=== PATIENT | female | born 1975 | race Caucasian/White ===

== ENCOUNTER 2023-04-12 11:15 | Emergency (ER) | payer OTHER, MEDICAID ==
[~2023-04-12] VITALS: Ht 157.4 cm; Wt 77.1 kg
[~2023-04-12 11:15] MED LIST: ATARAX,VISTARIL50 MG PO; ATIVAN1 MG PO; CLONAZEPAM0.5 M1 PO; CLONAZEPAM0.5 MG PO; KLONOPIN1 M1 PO; LAMICTAL25 MG PO; LATU120T PO; LATU80TA PO; MIRTAZAPINE15 M1 PO; MIRTAZAPINE15 MG PO; PROPRANOLOL HCL10 MG PO; RISPERDAL CONST25 MG IM; RISPERIDONE3 M1 PO; TOBRADEX 0.1%-2.5 ML OPH; TOBRADEX 0.3-0.15 ML OPH; TRAZODONE100 MG PO; TRAZODONE50 MG PO; VISTARIL PO; VITAMIN B121000 MC1 PO; VITAMIN D50000 I3 PO; VITAMIN D50000 IU PO; ZOLOFT50 MG PO; ZYPREXA10 MG PO; ZYPREXA20 M1 PO
[2023-04-12 11:20] VITALS: BP 117/63
[2023-04-12 11:51] LABS: BASO % 0.1 % (0.0-1.0); EOS # 0.2 10*3/uL (0.0-0.4); EOS % 2.2 % (1.0-4.0); HEMATOCRIT 45.6 % (37.0-47.0); LYMPH # 2.7 10*3/uL (1.3-4.4); LYMPH % 28.4 % (27.0-41.0); MEAN CELL VOLUME 90.5 fl (81.0-99.0); MEAN CORPUSCULAR HGB 31.2 pg (27.0-31.0); MEAN CORPUSCULAR HGB CONC 34.4 g/dl (33.0-37.0); MEAN PLATELET VOLUME 11.7 fl (9.6-12.3); MONO # 0.3 10*3/uL (0.1-1.0); MONO % 2.9 % (3.0-9.0); NEUT # 6.2 10*3/uL (2.3-7.9); NEUT % 66.2 % (47.0-73.0); PLATELET COUNT AUTOMATED 227 10*3/uL (130-400); RED BLOOD COUNT 5.04 10*6/uL (4.10-5.10); RED CELL DISTRI WIDTH 13.8 % (0-14.5); WHITE BLOOD COUNT 9.4 10*3/uL (4.8-10.8)
[2023-04-12] MEDS ORDERED: SERTRALINE HYD100 MG PO (11:57)
[2023-04-12] MEDS ORDERED: ABILIFY MAINTE400 MG IM (11:57)
[2023-04-12 12:03] LABS: ACT PARTIAL THROMBO TIME 28.4 SECONDS (20.0-32.1)
[2023-04-12 12:15] LABS: ALKALINE PHOSPHATASE 96 U/L (46-116); BUN < 5 mg/dl (9-23); CHLORIDE 101 mmol/L (98-107); LIPASE 34 U/L (12-53); POTASSIUM 3.4 mmol/L (3.4-5.1); SGPT/ALT 30 U/L (10-49); TOTAL PROTEIN 7.5 gm/dL (6.0-8.0)
[2023-04-12 12:16] LABS: BETA-HCG, QUANT < 3.0 mIU/mL (3-10)
[2023-04-12 12:52] LABS: BILIRUBIN Negative (Negative); BLOOD Negative (Negative); CLARITY Clear (Clear); COLOR Yellow (Yellow); GLUCOSE Negative (Negative); KETONE Negative (Negative); LEUKO ESTERASE Negative (Negative); NITRITE Negative (Negative); SPECIFIC GRAVITY <= 1.005 (1.001-1.030); UROBILINOGEN 0.2 E.U./dl (0.0-1.0)
[2023-04-12 13:03] LABS: BACTERIA 1+; EPITHELIAL CELLS 21-30
[2023-04-12] MEDS ORDERED: PREDNISONE50 MG PO (14:08)
[2023-04-12] MEDS ORDERED: CYCLOBENZAPRINE10 MG PO (14:08)
== END 2023-04-12 14:34 | disposition home or self-care (01) ==
LOC: ED 11:15
PROVIDERS: Emergency Medicine
DX: R10.30 Lower abdominal pain, unspecified (principal); R10.84 Generalized abdominal pain; J20.9 Acute bronchitis, unspecified; F32.A Depression, unspecified; F41.9 Anxiety disorder, unspecified; Z88.1 Allergy status to other antibiotic agents

== ENCOUNTER 2023-08-01 13:52 | Emergency (ER) | payer OTHER, MEDICAID ==
[~2023-08-01] VITALS: Ht 160 cm; Wt 72.6 kg
[~2023-08-01 13:52] MED LIST changes: +ABILIFY MAINTE400 MG IM; +CYCLOBENZAPRINE10 MG PO; +PREDNISONE50 MG PO; +SERTRALINE HYD100 MG PO
[2023-08-01 13:59] VITALS: BP 112/69
[2023-08-01 14:54] LABS: BASO % 0.3 % (0.0-1.0); EOS # 0.2 10*3/uL (0.0-0.4); EOS % 2.9 % (1.0-4.0); HEMATOCRIT 43.7 % (37.0-47.0); LYMPH # 2.8 10*3/uL (1.3-4.4); LYMPH % 39.1 % (27.0-41.0); MEAN CELL VOLUME 88.6 fl (81.0-99.0); MEAN CORPUSCULAR HGB 31.8 pg (27.0-31.0); MEAN CORPUSCULAR HGB CONC 35.9 g/dl (33.0-37.0); MEAN PLATELET VOLUME 12.2 fl (9.6-12.3); MONO # 0.3 10*3/uL (0.1-1.0); MONO % 4.3 % (3.0-9.0); NEUT # 3.9 10*3/uL (2.3-7.9); NEUT % 53.1 % (47.0-73.0); PLATELET COUNT AUTOMATED 204 10*3/uL (130-400); RED BLOOD COUNT 4.93 10*6/uL (4.10-5.10); RED CELL DISTRI WIDTH 13.6 % (0-14.5); WHITE BLOOD COUNT 7.2 10*3/uL (4.8-10.8)
[2023-08-01 15:11] LABS: BILIRUBIN Negative (Negative); BLOOD 2+ (Negative); CLARITY Clear (Clear); COLOR Yellow (Yellow); GLUCOSE Negative (Negative); KETONE Negative (Negative); LEUKO ESTERASE Negative (Negative); NITRITE Negative (Negative); SPECIFIC GRAVITY <= 1.005 (1.001-1.030); UROBILINOGEN 0.2 E.U./dl (0.0-1.0)
[2023-08-01 15:15] LABS: ALKALINE PHOSPHATASE 84 U/L (46-116); BUN < 5 mg/dl (9-23); CHLORIDE 105 mmol/L (98-107); LIPASE 45 U/L (12-53); POTASSIUM 3.9 mmol/L (3.4-5.1); SGPT/ALT 38 U/L (10-49); TOTAL PROTEIN 7.6 gm/dL (6.0-8.0)
[2023-08-01 15:28] LABS: BACTERIA 1+; RBC 16-20 rbc/hpf (0-2)
[2023-08-01] MEDS ORDERED: CIPRO500 MG PO (17:41)
[2023-08-01] MEDS ORDERED: METRONIDAZOLE500 M1 PO (17:41)
== END 2023-08-01 17:51 | disposition home or self-care (01) ==
LOC: ED 13:52
PROVIDERS: Nurse Practitioner Family
DX: K52.9 Noninfective gastroenteritis and colitis, unspecified (principal); K80.20 Calculus of gallbladder without cholecystitis without obstruction; F32.A Depression, unspecified; Z88.1 Allergy status to other antibiotic agents; Z79.899 Other long term (current) drug therapy; Z90.49 Acquired absence of other specified parts of digestive tract